=== PATIENT | male | born 1980 | race Caucasian/White ===

== ENCOUNTER 2020-09-04 21:22 | Emergency (ER) | payer SELFPAY ==
[~2020-09-04] VITALS: Ht 172.7 cm; Wt 72.0 kg
[2020-09-04 21:35] VITALS: BP 165/104
[2020-09-04] MEDS ORDERED: LIDOCAINE 2% Multi-Dose 20 ML VIAL. IJ ONE (22:30)
[2020-09-04] MEDS ORDERED: LIDOCAINE 1% Multi-Dose 20 ML VIAL. ONE (23:29)
--- NOTE | 2020-09-04 23:37 | ED.ADGEN ---
Past Medical History Past Medical History: No Pertinent History Past Surgical History: Tonsillectomy Additional Past Surgical Histo: T&A Smoking Status: Never Smoker Alcohol Use: Rarely Drug Use: Marijuana General Adult EDM: Chief Complaint: FINGER INJURY HPI: HPI: Patient is a 40-year-old male who presents to the emergency room after getting a staple stuck in his finger while working. He denies any other injuries. He is unsure when his last tetanus shot was. He states that the pain in his finger feels like a little heartbeat. He states that it is okay as long as he does not touch it or move it. He is able to fully move the finger. He denies any decreased sensation. Review of Systems: Review of Systems: Complete ROS is negative unless otherwise documented in HPI Current Medications: Current Medications Medications (Trade) Dose Ordered Sig/Connor Start Time Stop Time Status Last Admin Dose Admin Diphtheria/ Tetanus/Acell Pertussis (ADACEL TDap SYRINGE) 0.5 ml ONCE ONCE 09/05/20 00:00 09/05/20 00:01 DC 09/04/20 23:51 0.5 ML Lidocaine HCl (Lidocaine 1% 20ml Vial) 20 ml STK-MED ONCE 09/04/20 23:29 09/04/20 23:30 DC Lidocaine HCl (Lidocaine 2% 20ml Vial) 20 ml 1X ONCE 09/04/20 22:30 09/04/20 22:31 DC Allergies: Allergies: Allergies Coded Allergies Type Severity Reaction Last Updated Verified codeine Allergy Intermediate nausea, pruritis 09/04/20 Yes Physical Exam: PE: General: Awake, alert, NAD. Well Nourished, well hydrated. Cooperative HEENT: Atraumatic, EOMI, PERRL, airway patent, moist oral mucosa Neck: Supple, trachea midline GI: Soft, nondistended, nontender, no masses MSK: No obvious deformities Skin: Warm, dry. Left hand: Left pointer finger with a superficial laceration to the palmar surface proximally around 1 cm that does not need closure. Small stable in the left pointer finger distally without any bleeding. Neuro: A&O x3, speech NL, sensory and motor grossly intact, no focal deficits Psych: Normal affect, normal mood, not suicidal or homicidal Current Patient Data: Vital Signs: Vital Signs Date Time Temp Pulse Resp B/P (MAP) Pulse Ox O2 Delivery O2 Flow Rate FiO2 09/04/20 21:35 98.4 80 20 165/104 (124) 98 Room Air 98.4 EKG: EKG: [] Heart Score: C/O Chest Pain: N/A Risk Factors: Risk Factors: DM, Current or recent (<one month) smoker, HTN, HLP, family history of CAD, obesity. Risk Scores: Score 0 - 3: 2.5% MACE over next 6 weeks - Discharge Home Score 4 - 6: 20.3% MACE over next 6 weeks - Admit for Clinical Observation Score 7 - 10: 72.7% MACE over next 6 weeks - Early Invasive Strategies Radiology/Procedures: Radiology/Procedures: [] Course & Med Decision Making: Course & Med Decision Making Pertinent Labs and Imaging studies reviewed. (See chart for details) Patient is a 40-year-old male presents to the emergency room with a staple stuck in his finger. Finger was blocked with a digital block. Staple was removed without difficulty. Wound was cleaned out. Tetanus was updated. Patient's test results and vitals while in the ED were fully reviewed and discussed with the patient. Patient is stable and at this time does not need admission to the hospital. We have discussed strict return precautions and the importance of following up with their Primary Care Physician. Patient stated understanding and was given an opportunity to ask any questions. Patient is in agreement with plan. Dragon Disclaimer: Dragon Disclaimer: This electronic medical record was generated, in whole or in part, using a voice recognition dictation system. PROCEDURE Procedure Performed by: Dr. Caleb Najera MD Consent: Verbal consent obtained. Risks and benefits: risks, benefits and alternatives were discussed Consent given by: patient Patient understanding: patient states understanding of the procedure being performed Patient consent: the patient's understanding of the procedure matches consent given Patient identity confirmed: arm band Time out: Immediately prior to procedure a "time out" was called to verify the correct patient, procedure, equipment, physician support coordinator and site/side marked as required. Body area: Left pointer finger Local anesthetic: Nerve block with 1% lidocaine Anesthetic total: 2 mils Patient cooperative: yes Removal mechanism: Forceps Eye examined with fluorescein. Complexity: simple Objects recovered: 1 Post-procedure assessment: foreign body removed Patient tolerance: Patient tolerated the procedure well with no immediate complications. Comments: Departure Departure Impression: Primary Impression: Foreign body finger Disposition: HOME SELF CARE/HOMELESS Condition: IMPROVED Referrals: NO PCP (PCP) Patient Instructions: Fingertip Injuries and Amputations CALEB NAJERA MD Sep 04, 2020 23:37
[2020-09-05] MEDS ORDERED: DIPH,PERTUSS(ACELL),TET VAC/PF 0.5 ML SYRINGE. VAX IM ONE
== END 2020-09-04 23:57 | disposition home or self-care (01) ==
LOC: ER 21:22
DX: S60.458A Superficial foreign body of other finger, initial encounter (principal); Z88.5 Allergy status to narcotic agent; W22.8XXA Striking against or struck by other objects, initial encounter; Y93.89 Activity, other specified; Y92.89 Other specified places as the place of occurrence of the external cause; Y99.8 Other external cause status
CPT/HCPCS: 64450; 90471; 90715; 99284-25